=== PATIENT | male | born 1995 | race Caucasian/White ===

== ENCOUNTER 2021-11-09 09:03 | Emergency (ER) | payer MEDICAID, OTHER ==
[~2021-11-09] VITALS: Ht 180.3 cm; Wt 68.2 kg
[2021-11-09 09:14] VITALS: BP 127/93
[2021-11-09] MEDS ORDERED: fentaNYL 50MCG/ML 2ML intranasal KIT (WASTE REMAINDER W/WITNESS) NAS STA (12:20)
--- NOTE | 2021-11-09 13:00 | NUR ---
PATIENT MEDICATED WITH INTRANASAL FENTANYL PRIOR TO PROCEDURE PER DR HARDIN. PATIENT TOLERATED NASAL MANIPULATION WELL. VITAL SIGNS STABLE WITH O2 SAT 100% RA. AND HEART RATE 80-84/MIN.
[2021-11-09] MEDS ORDERED: NAPR-56 PO (13:29)
== END 2021-11-09 14:03 | disposition home or self-care (01) ==
LOC: ER 09:04
DX: S02.2XXA Fracture of nasal bones, initial encounter for closed fracture (principal); J34.89 Other specified disorders of nose and nasal sinuses; Z72.89 Other problems related to lifestyle; Z79.899 Other long term (current) drug therapy; X58.XXXA Exposure to other specified factors, initial encounter; Y93.89 Activity, other specified; Y92.89 Other specified places as the place of occurrence of the external cause; Y99.8 Other external cause status
CPT/HCPCS: 21315; 70160; 99284; J3010